=== PATIENT | male | born 1965 | race Caucasian/White ===

== ENCOUNTER 2019-01-07 02:35 | Emergency (ER) | payer OTHER ==
[~2019-01-07] VITALS: Ht 167.6 cm; Wt 79.7 kg
[~2019-01-07 02:35] MED LIST: GLYC1SUP92 PR; SIME180C13 PO
[2019-01-07 02:39] VITALS: BP 129/70; PULSE 90; RESP 18; Ht 167.6 cm; Wt 79.7 kg
[2019-01-07] MEDS ORDERED: GLYCERIN (ADULT) SUPP PR ONE (03:30)
[2019-01-07] MEDS ORDERED: MAGNESIUM CITRATE 300 ML BTL PO ONE (03:30)
== END 2019-01-07 05:21 | disposition home or self-care (01) ==
LOC: FTE 02:35
DX: K59.00 Constipation, unspecified (principal)
CPT/HCPCS: 74018; 82270; Z7502; Z7610